=== PATIENT | male | born 1990 | race Caucasian/White ===

== ENCOUNTER 2017-10-06 16:35 | Emergency (ER) | payer MEDICAID ==
[~2017-10-06] VITALS: Ht 177.8 cm; Wt 87.6 kg
[~2017-10-06 16:35] MED LIST: CETI10CA PO; DOCU-144 PO; MECL25TA2 PO; POLY17PO6 PO
[2017-10-06 16:39] VITALS: Ht 177.8 cm; Wt 87.6 kg
[2017-10-06] MEDS ORDERED: TETRACAINE 0.5% 4 ML OPH RIGHT EYE ONE (18:30)
[2017-10-06] MEDS ORDERED: FLUORESCEIN STRIP RIGHT EYE ONE (18:30)
[2017-10-06] MEDS ORDERED: IBUP-1542 PO (19:33)
[2017-10-06] MEDS ORDERED: OFLO5DRO46 RIGHT EYE (19:34)
--- NOTE | 2017-10-07 01:27 | ERD ---
ER Documentation Chief Complaint Chief Complaint BIB SELF C/O RIGHT EYE REDNESS. POSSIBLE FOREIGN BODY HPI Patient is a 27-year-old male who presents to the ED for concerns of right eye redness and eye foreign body. Patient states he is trimming down trees earlier today when he felt something get into his eye. He attempted to rinse out his eye however he continues to have a burning pain in his right eye. Patient also reports intermittent tearing. Patient denies any eye discharge or bleeding. Patient denies any visual changes. Patient denies any contact lens use. Patient denies any fever, chills, headache, nausea, vomiting, chest pain or shortness of breath or LOC. ROS All systems reviewed and are negative except as per history of present illness. Medications Home Meds Active Scripts Ofloxacin* (Ocuflox*) 0.3%-5 Ml Ophth Drops, 1 DROP RIGHT EYE QID for 7 Days, # 1 BOTTLE Prov:JOHN LARSON PA-C 10/06/17 Ibuprofen* (Motrin*) 600 Mg Tab, 600 MG PO Q6, #20 TAB Prov:JOHN LARSON PA-C 10/06/17 Docusate Sodium* (Colace*) 100 Mg Capsule, 100 MG PO BID, #60 CAP Prov:BOGDAN HURST NP 01/08/16 Polyethylene Glycol* (Miralax*) 17 Gm Powd.pack, 17 GM PO DAILY, #7 Prov:BOGDAN HURST NP 01/08/16 Meclizine Hcl* (Antivert*) 25 Mg Tablet, 25 MG PO Q6H Y for dizziness, #20 TAB Prov:BOGDAN HURST NP 01/08/16 Cetirizine Hcl* (Zyrtec*) 10 Mg Capsule, 10 MG PO DAILY, #30 TAB.CHEW Prov:BOGDAN HURST NP 01/08/16 Reported Medications [none] Unknown Strength No Conflict Check 01/08/16 Allergies Allergies: Coded Allergies: No Known Allergy (Unverified , 01/07/16) PMhx/Soc History of Surgery: No Anesthesia Reaction: No Hx Neurological Disorder: No Hx Respiratory Disorders: No Hx Cardiac Disorders: No Hx Psychiatric Problems: No Hx Miscellaneous Medical Probl: No Hx Alcohol Use: No Hx Substance Use: No Hx Tobacco Use: No Smoking Status: Never smoker Physical Exam Vitals Vital Signs Date Time Temp Pulse Resp B/P Pulse Ox O2 Delivery O2 Flow Rate FiO2 10/06/17 16:39 98.9 75 18 134/81 100 Physical Exam GENERAL: Well-developed, well-nourished male. Appears in no acute distress. HEAD: Normocephalic, atraumatic. EYE: Visual acuity w/ Snellen eye chart: see interventions Normal eye alignment. No orbital swelling or erythema. No proptosis. Pupils equal, round, and reactive to light. EOMs intact. Right conjunctiva erythematous. Positive tearing noted.. No scleral icterus. Anterior chamber clear. No hyphema or hypopion. Wood's lamp exam: No foreign bodies visualized. Corneal abrasion noted in the 9 o'clock position. Positive fluorescein uptake noted in this area. Negative Emmy sign. ENT: Moist mucous membranes. No uvula deviation. No kissing tonsils. NECK: Supple. No meningismus. Normal range of motion of the neck. LUNG: Clear to auscultation bilaterally. No rhonchi, wheezing, rales or coarse breath sounds. HEART: Regular rate and rhythm. No murmurs, rubs or gallops. EXTREMITIES: Equal pulses bilaterally. No peripheral clubbing, cyanosis or edema. No unilateral leg swelling. NEUROLOGIC: Alert and oriented. Moving all four extremities without any difficulty. Normal speech. Steady gait. SKIN: Normal color. Warm and dry. No rashes or lesions. Results 24 hrs Current Medications Medications (Trade) Dose Ordered Sig/Inocente Route PRN Reason Start Time Stop Time Status Last Admin Dose Admin Tetracaine HCl (Tetracaine 0.5% Steri-Unit Marlen) 1 drop ONCE ONCE RIGHT EYE 10/06/17 18:30 10/06/17 18:31 DC Fluorescein Sodium (Irjvu-L-Rpspb) 1 strip ONCE ONCE RIGHT EYE 10/06/17 18:30 10/06/17 18:31 DC Procedures/[facility] MEDICAL DECISION MAKING: This is a 27-year-old male who presents with right eye redness concerns of a foreign body after trimming trees earlier today. Vital signs were reviewed. Patient was afebrile. Patient's vision was grossly intact. Wood's lamp revealed findings of a corneal abrasion. Negative Emmy sign. Patient's eye was rinsed using Mal lens. No retained foreign bodies are noted. Given these findings, the patient's presentation is most consistent with corneal abrasion to R eye. I have a much lower clinical concern for orbital rupture, corneal ulcer, retained eye foreign body, glaucoma, periorbital cellulitis, orbital cellulitis, hordeolum, dacrocystitis. PRESCRIPTIONS: Ibuprofen, Ciprodex DISCHARGE: At this time, patient is stable for discharge and outpatient management. Supportive measures were discussed with patient including warm/cool compresses. Patient advised not to wear contact lenses or eye makeup. I have instructed the patient to follow-up with his/her primary care physician in 1-2 days. 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 Referral information provided. I have instructed the patient to promptly return to the ER for any new or worsening symptoms including increased pain, fever, swelling, redness, warmth, nausea, vomiting, . The patient and/or family expressed understanding of and agreement with this plan. All questions were answered. Home care instructions were provided. Disclaimer: Inadvertent spelling and grammatical errors are likely due to EHR/ dictation software use and do not reflect on the overall quality of patient care. Also, please note that the electronic time recorded on this note does not necessarily reflect the actual time of the patient encounter. Departure Diagnosis: Primary Impression: Corneal abrasion, right Condition: Stable Patient Instructions: Corneal Abrasion Referrals: [facility] YOU HAVE RECEIVED A MEDICAL SCREENING EXAM AND THE RESULTS INDICATE THAT YOU DO NOT HAVE A CONDITION THAT REQUIRES URGENT TREATMENT IN THE EMERGENCY DEPARTMENT. FURTHER EVALUATION AND TREATMENT OF YOUR CONDITION CAN WAIT UNTIL YOU ARE SEEN IN YOUR DOCTORS OFFICE WITHIN THE NEXT 1-2 DAYS. IT IS YOUR RESPONSIBILITY TO MAKE AN APPOINTMENT FOR FOLOW-UP CARE. IF YOU HAVE A PRIMARY DOCTOR --you should call your primary doctor and schedule an appointment IF YOU DO NOT HAVE A PRIMARY DOCTOR YOU CAN CALL OUR PHYSICIAN REFERRAL HOTLINE AT IF YOU CAN NOT AFFORD TO SEE A PHYSICIAN YOU CAN CHOSE FROM THE FOLLOWING [facility] [address] [facility] [address] [facility] [address] [facility] [address] [facility]. [facility] [address] [facility]. [facility] [address] [facility]. [facility] YOU HAVE RECEIVED A MEDICAL SCREENING EXAM AND THE RESULTS INDICATE THAT YOU DO NOT HAVE A CONDITION THAT REQUIRES URGENT TREATMENT IN THE EMERGENCY DEPARTMENT. FURTHER EVALUATION AND TREATMENT OF YOUR CONDITION CAN WAIT UNTIL YOU ARE SEEN IN YOUR DOCTORS OFFICE WITHIN THE NEXT 1-2 DAYS. IT IS YOUR RESPONSIBILITY TO MAKE AN APPOINTMENT FOR FOLOW-UP CARE. IF YOU HAVE A PRIMARY DOCTOR --you should call your primary doctor and schedule and appointment IF YOU DO NOT HAVE A PRIMARY DOCTOR YOU CAN CALL OUR PHYSICIAN REFERRAL HOTLINE AT . IF YOU CAN NOT AFFORD TO SEE A PHYSICIAN YOU CAN CHOSE FROM THE FOLLOWING [facility] INSTITUTIONS: [facility] [address] [place] [address] [facility] [address] [place], [place] [id number] [place] [address] [address] [place] [address] [facility] Hours: Mon - Fri 9:00 AM - 5:00 PM Additional Instructions: Call your primary care doctor/ EYE DOCTOR TOMORROW for an appointment during the next 1-2 days.See the doctor sooner or return here if your condition worsens before your appointment time. JOHN LARSON PA-C Oct 07, 2017 01:27
== END 2017-10-06 20:02 | disposition home or self-care (01) ==
LOC: FTE 16:35
DX: S05.01XA Injury of conjunctiva and corneal abrasion without foreign body, right eye, initial encounter (principal); X58.XXXA Exposure to other specified factors, initial encounter; Y92.9 Unspecified place or not applicable
CPT/HCPCS: Z7502; Z7610; 99284